=== PATIENT | female | born 1990 | race Caucasian/White ===

== ENCOUNTER 2019-08-05 06:29 | Inpatient (IN) | payer OTHER ==
[2019-08-05] MEDS ORDERED: LIDOCAINE 0.5% (PF) 5 MG/ML (50 ML SDV) SQ PRN ×2 (06:49→07:50)
[2019-08-05] MEDS ORDERED: METHYLERGONOVINE 0.2 MG/ML 1 ML AMP IM PRN ×2 (06:49→07:50)
[2019-08-05] MEDS ORDERED: TERBUTALINE 1 MG/ML VIAL SQ PRN ×2 (06:49→07:50)
[2019-08-05] MEDS ORDERED: CARBOPROST TROMETHAMINE 250 MCG/ML 1 ML AMP IM PRN ×2 (06:49→07:50)
[2019-08-05] MEDS ORDERED: OXYTOCIN 10 UNIT/ML 1 ML VIAL IM PRN ×2 (06:49→07:50)
[2019-08-05] MEDS: LACTATED RINGERS 1,000 ML IV SCH ×2 (07:14→13:00)
[2019-08-05 07:25] LABS: Basophils # (A) 0.3 k/uL (0-0.2); Basophils % (A) 1 %; Eosinophils # (A) 0.3 k/uL (0-0.7); Eosinophils % (A) 1 %; HGB 13.7 gm/dL (11.4-16.0); Lymphocytes # (A) 1.8 k/uL (1.0-4.8); Lymphocytes % (A) 8 %; MCHC 32.5 g/dL (31.0-37.0); MCV 92.3 fL (80.0-100.0); Monocytes # (A) 1.3 k/uL (0-1.0); Monocytes % (A) 6 %; Neutrophils # (A) 17.6 k/uL (1.3-7.7); Neutrophils % (A) 81 %; Platelet Count 318 k/uL (150-450); RBC 4.56 m/uL (3.80-5.40); RDW 13.7 % (11.5-15.5); WBC 21.7 k/uL (3.8-10.6)
--- NOTE | 2019-08-05 07:30 | P.HPOB ---
History of Present Illness H&P Date: 08/05/19 This is a 29-year-old white female 1 para 0 EDC 08/07/2019 at 39-5/7 weeks' gestation. Patient presents with spontaneous amniorrhexis which occurred this morning at approximately 0200 hrs., clear fluid. She is having mild irregular uterine contractions. She denies vaginal bleeding. Fetus is been active throughout the . Past medical history is essentially negative. Past surgical history left knee meniscus repair 2015. Current medications vitamins daily. ALLERGIES none known. Family history significant for hypertension and diabetes. 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 She denies alcohol or drug use. history blood type is O-, rubella status nonimmune. Hepatitis B surface antigen, HIV testing, urine culture, gonorrhea and chlamydia cultures, group B strep cultures all negative. One-hour Glucola 141, 3 hour GTT within normal limits. On exam this is a pleasant white female who appears somewhat anxious. She is 5 foot 4 inches, 159 pounds, blood pressure and vital signs normal. The general physical exam is within normal limits. heart rate is in the 130s with frequent accelerations consistent with reactive NST. Uterine contractions are occurring every 6 minutes apart of mild intensity. Cervix is 5 cm dilated, 70- 80% effaced, -2 station, vertex presentation, obvious amniorrhexis noted. Impression: 39-5/7 weeks intrauterine , here in early spontaneous labor. All signs reassuring. Plan: We will proceed with oxytocin augmentation to assist patient in entering into the active phase of labor. Continue close maternal and surveillance. Analgesic options reviewed with the patient. Anticipate normal spontaneous vaginal delivery. Review of Systems Constitutional: Reports as per HPI Past Medical History Past Medical History: No Reported History History of Any Multi-Drug Resistant Organisms: None Reported Additional Past Surgical History / Comment(s): L Knee Past Anesthesia/Blood Transfusion Reactions: No Reported Reaction Past Psychological History: No Psychological Hx Reported Smoking Status: Never smoker Past Alcohol Use History: None Reported Past Drug Use History: None Reported - Past Family History Mother Family Medical History: No Reported History Medications and Allergies Home Medications Medication Instructions Recorded Confirmed Type Pnv No.95/Ferrous Fum/Folic AC 1 each PO DAILY 08/05/19 08/05/19 History [ Multivitamin Tablet] Allergies Allergy/AdvReac Type Severity Reaction Status Date / Time No Known Allergies Allergy Verified 08/05/19 06:48 Exam Vital Signs Temp Pulse Resp BP Pulse Ox 08/05/19 07:04 98.6 F 97 16 132/79 99 Intake and Output 08/04/19 08/05/19 08/05/19 22:59 06:59 14:59 Other: Weight 72.121 kg 72.121 kg See dictation under HPI please Results Result Diagrams: 08/05/19 07:13 Abnormal Lab Results - Last 24 Hours (Table) 08/05/19 Range/Units 07:13 WBC 21.7 H (3.8-10.6) k/uL Neutrophils # 17.6 H (1.3-7.7) k/uL Monocytes # 1.3 H (0-1.0) k/uL Basophils # 0.3 H (0-0.2) k/uL Assessment and Plan Assessment: 39-5/7 weeks intrauterine , being admitted in early active labor. All signs reassuring. Plan: Oxytocin augmentation per hospital protocol. Close maternal and surveillance. Analgesic options reviewed with the patient. All questions answered. Anticipate normal spontaneous vaginal delivery. Time with Patient: Less than 30
[2019-08-05] MEDS: OXYTOCIN 30 UNITS/500 ML NS 30 UNIT in SALINE 1 500ML.BAG IV SCH (07:57)
[2019-08-05] MEDS ORDERED: LACTATED RINGERS 1,000 ML IV SCH (08:00)
--- NOTE | 2019-08-05 13:46 | P.PROBDLV ---
Vaginal Delivery Note - . Vaginal Delivery Note: This is a 29-year-old white female 1 para 0 EDC 08/07/2019 at 39-5/7 weeks' gestation. Patient presented in active spontaneous labor, was amniorrhexis which occurred at home at 0200 hrs., clear fluid. Group B strep cultures negative, blood type O-, rubella status nonimmune. Please see dictated history and physical for details. Oxytocin augmentation was started. Epidural was offered but declined. Patient progressed well through the first stage of labor, heart tones were reassuring throughout. She became completely dilated at 1236 hours and began the second stage of labor at that time. She progressed well through the second stage, ultimately the perineal body was prepped and draped in usual sterile fashion. The was a large amount of Noted. Infant delivered occiput anterior and restituted accordingly. The left or anterior shoulder was delivered from underneath the pubic symphysis at which time the oropharynx, nasopharynx, and external nares were all bulb suctioned. Patient was officially delivered of a liveborn male at 1326 hours. Umbilical cord was doubly clamped and ligated, he was handed to waiting nurses for evaluation where scores of 9 and 9 at one and 5 minutes respectively were given. Placenta delivered spontaneously, it was inspected and noted to be intact with trivascular cord. Massage of the uterus is then performed. Careful inspection of the cervix, vagina, perineum, periurethral, and perirectal tissues revealed no significant lacerations. No suturing was deemed necessary. Patient and her are declining circumcision further son. He weighs 3950 g or 8 lbs. 11 oz. Total estimated blood loss 250 mL's. Patient and her family are allowed to begin the bonding experience in the L[facility].
[2019-08-05] MEDS ORDERED: diphenhydrAMINE ELIXIR 25 MG/10 ML CUP PO PRN (13:47)
[2019-08-05] MEDS ORDERED: HYDROCORTISONE 2.5% RECTAL CREAM 30 GM TUBE RECTAL PRN (13:47)
[2019-08-05] MEDS ORDERED: ZOLPIDEM 5 MG TAB PO PRN (13:47)
[2019-08-05] MEDS ORDERED: diphenhydrAMINE 50 MG/ML 1 ML VIAL IVP PRN ×2 (13:47)
[2019-08-05] MEDS ORDERED: diphenhydrAMINE 50 MG CAP PO PRN (13:47)
[2019-08-05] MEDS ORDERED: LANOLIN CREAM 5 GM TUBE TOPICAL PRN (13:47)
[2019-08-05] MEDS ORDERED: SIMETHICONE 80 MG CHEWABLE PO PRN (13:47)
[2019-08-05] MEDS ORDERED: BENZOCAINE/MENTHOL SPRAY 1 GM/SPRAY AEROSOL TOPICAL PRN (13:47)
[2019-08-05] MEDS ORDERED: WITCH HAZEL 1 EACH MED..PAD TOPICAL PRN (13:47)
[2019-08-05] MEDS ORDERED: diphenhydrAMINE 25 MG CAP PO PRN (13:47)
[2019-08-05] MEDS ORDERED: ACETAMINOPHEN TAB 325 MG TAB PO PRN (13:47)
[2019-08-05] MEDS ORDERED: OXYTOCIN 20 UNITS/1000 ML NS 1,000 ML IV SCH (14:00)
[2019-08-05] MEDS: IBUPROFEN 600 MG TAB PO PRN ×2 (14:47→22:25)
[2019-08-05] MEDS ORDERED: Rhogam IMMUNE GLOBULIN 1,500 UNIT/1 ML IM ONE (17:38)
[2019-08-05] MEDS ORDERED: SENNA LEAF EXTRACT SYRUP 528 MG/15 ML CUP PO SCH (20:00)
[2019-08-05] MEDS: SENNOSIDES-DOCUSATE SODIUM 1 EACH TAB PO SCH (20:06)
[2019-08-06] MEDS: IBUPROFEN 600 MG TAB PO PRN (05:05)
[2019-08-06] MEDS: SENNOSIDES-DOCUSATE SODIUM 1 EACH TAB PO SCH ×2 (07:33→20:24)
--- NOTE | 2019-08-06 08:17 | P.DS ---
Providers Date of admission: 08/05/19 06:46 Expected date of discharge: 08/06/19 Attending physician: Fadumo Oden Primary care physician: Stated None Hospital Course: This is a 29-year-old white female 1 para 0 EDC 08/07/2019 at 39-5/7 weeks' gestation. Patient presented initially with spontaneous amniorrhexis which occurred at home at 0200 hrs., clear fluid. Irregular uterine contractions were noted. was essentially unremarkable, blood type O-, rubella status nonimmune, group B strep cultures negative. Please see dictated history and physical for details. Patient progressed well through the first stage of labor, declining option for epidural. She went on to deliver a liveborn male infant with scores of 9 and 9 at one and 5 minutes respectively. weighed 8 lbs. 11 oz. or 3950 g. Estimated blood loss 250 mL's. No episiotomies or lacerations needed repair. Please see dictated delivery note for details. This morning the patient is doing well. She is voiding, ambulating and passing flatus without difficulty. Vital signs are stable and she is afebrile. Fundus is firm, midline, symmetric, 18 week size. Extremities are negative for edema. Breast-feeding is going well. She has a breast pump at home. She is declining circumcision for her son. [employer] Worker has cleared the baby for discharge home as well. Patient will follow-up with me in the office in 6 weeks. I reminded her no intercourse, tampons or douching. She will use [id number] Advil or Aleve, or Motrin as needed for pain. I've asked her to call me with any fevers shakes or chills, foul smelling or copious lochia, with the passage of large blood clots, with any pain not alleviated by [id number] products, or indeed with any concerns. She will continue taking her vitamin daily. We have briefly reviewed options for contraception and we will further discuss this in the office. Patient Condition at Discharge: Good Plan - Discharge Summary Discharge Rx Participant: No New Discharge Prescriptions: No Action Pnv No.95/Ferrous Fum/Folic AC [ Multivitamin Tablet] 1 each PO DAILY Discharge Medication List Pnv No.95/Ferrous Fum/Folic AC [ Multivitamin Tablet] 1 each PO DAILY 08/05/19 [History] Follow up Appointment(s)/Referral(s): Fadumo Oden MD [STAFF PHYSICIAN] - 6 Weeks Discharge Disposition: HOME SELF-CARE
[2019-08-06] MEDS: LACTATED RINGERS 1,000 ML IV SCH (20:23)
[2019-08-06] MEDS: OXYTOCIN 30 UNITS/500 ML NS 30 UNIT in SALINE 1 500ML.BAG IV SCH (20:24)
[2019-08-07 07:51] VITALS: BP 118/70; PULSE 80; RESP 18; TEMP 98.9
== END 2019-08-07 09:50 | disposition home or self-care (01) | DRG 807 ==
LOC: FBPOP 06:29 → 4FBP 06:46
PROVIDERS: ADMIT Obstetrics & Gynecology; ATTEND Obstetrics & Gynecology
PROC: 10E0XZZ Delivery of Products of Conception, External Approach (ICD-10-PCS; principal; 2019-08-05)
DX: O80 Encounter for full-term uncomplicated delivery (principal); Z37.0 Single live birth; Z83.3 Family history of diabetes mellitus; Z82.49 Family history of ischemic heart disease and other diseases of the circulatory system; Z3A.39 39 weeks gestation of pregnancy
CPT/HCPCS: 85025; 85461; 86850; 86900; 86901